=== PATIENT | female | born 1985 | race Caucasian/White ===

== ENCOUNTER 2024-01-21 01:18 | Emergency (ER) | payer SELFPAY ==
[2024-01-21 02:21] LABS: BHCG - Serum Negative (NEGATIVE); Pregs Control Background? CLEAR/WHITE (CLR/WHITE); Pregs Control Bar Appear? YES (CONTROL BAR)
[2024-01-21 02:22] LABS: Carbon Dioxide 26 mmol/L (22-29); Chloride 103 mmol/L (98-107); Potassium 3.3 mmol/L (3.5-5.1); Sodium 140 mmol/L (136-145)
[2024-01-21 02:24] LABS: Anion Gap 14 mmol/L (10-20); BUN (Urea Nitrogen) 9 mg/dL (7.0-18.7); Calc. Creatinine Clearance 0 mL/min (70-130); Estimated GFR 100
[2024-01-21] MEDS ORDERED: Ondansetron ODT 4 MG TAB ONE (02:24)
[2024-01-21 02:25] LABS: Albumin 3.9 g/dL (3.5-5.0); Bilirubin, Total 0.4 mg/dL (0.2-1.2); Calcium 9.8 mg/dL (7.6-10.4); Glucose 103 mg/dL (70-105); Protein, Total 7.3 g/dL (6.0-8.3)
[2024-01-21] MEDS ORDERED: Potassium Bicarbonate/Cit Ac 20 MEQ TAB ONE (02:25)
[2024-01-21 02:26] LABS: ALT (SGPT) 17 U/L (8-55); AST (SGOT) 24 U/L (5-34); Alkaline Phosphatase 85 U/L (40-110); Globulin 3.4 g/dL (2.4-3.5)
[2024-01-21 05:29] LABS: Hemoglobin 12.2 g/dL (12.0-15.5); Mean Corpuscular HGB CONC 31.3 g/dL (32.0-36.0); Mean Corpuscular Hemoglobin 24.3 pg (27.0-33.0); Mean Corpuscular Volume 77.7 fl (81.6-98.3); Mean Platelet Volume 10.2 fl (7.4-10.4); Platelet Count 391 10x3/uL (130-400); RBC Distribution Width 16.5 % (11.5-14.5); Red Blood Cell (RBC) Count 5.02 10x6/uL (3.90-5.03); White Blood Cell (WBC) Count 8.4 10x3/uL (3.5-10.5)
[2024-01-21 05:30] LABS: #Basophils 0.03 10x3/uL (0.0-0.2); #Eosinphils 0.14 10x3/uL (0.0-0.5); #Monocytes 0.66 10x3/uL (0.0-1.1); #Neutrophils 6.32 10x3/uL (1.5-8.4); %Basophils 0.4 % (0.0-2.0); %Eosinophils 1.7 % (0.0-6.0); %Lymphocytes 14.8 % (18.0-47.0); %Monocytes 7.9 % (0.0-10.0); %Neutrophils 75.1 % (40.0-75.0)
== END 2024-01-21 02:40 | disposition home or self-care (01) ==
LOC: CSHERS 01:18
DX: M79.10 Myalgia, unspecified site (principal); E87.6 Hypokalemia; R11.0 Nausea; F17.210 Nicotine dependence, cigarettes, uncomplicated
CPT/HCPCS: 80053; 84703; 85025; 93005; Q0162